=== PATIENT | female | born 1990 | race Caucasian/White ===

== ENCOUNTER 2016-07-24 15:29 | Emergency (ER) | payer OTHER ==
[2016-07-24 15:47] VITALS: RESP 18
--- NOTE | 2016-07-24 16:19 | EDPHY ---
H & P Time Seen by Provider: 07/24/16 16:15 HPI/ROS: Chief complaint. Shortness of breath HPI. 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 Last evening they were extracting the CBD oil and loosened the valve for the top of the instrument and apparently it ball [place] boiled over. There were some fumes. The patient was not in the room initially but came back in shortly thereafter and noticed the fumes. She noticed some burning in her sinuses and a bit of a headache. She was a little bit achy. She went home and slept well today she has slight tightness in her chest and had some nausea this morning. Otherwise no fever vomiting. No history of lung problems. The only material that she knows was in the extraction operation besides hemp was diatomaceous earth ROS Constitutional. no fever/chills, no weakness Eyes. no problems with vision ENT. no sore throat, no nasal drainage Cardiovascular. no chest pain Respiratory. Tightness with breathing Abdominal. no abdominal pain, no nausea/vomiting, no diarrhea . no problems urinating MS. no calf pain/swelling, no neck/back pain, no joint pain Skin. no rash Lymph. no swollen glands Neuro. no headache, no dizziness, no difficulty walking or with speech Past Medical/Surgical History: Healthy Social History: , nonsmoker, no alcohol Smoking Status: Former smoker Physical Exam: General Appearance: Alert pleasant well-developed female mild distress vital signs are stable Eyes: Pupils equal and round no pallor or injection. ENT, Mouth: Mucous membranes are moist. Mild erythema to pharynx without swelling or purulence Respiratory: No retractions slight inspiratory expiratory wheezing Cardiovascular: Regular rate and rhythm. Gastrointestinal: Abdomen is soft and nontender, no masses, bowel sounds normal. Neurological: Awake and alert, sensory and motor exams grossly normal. Skin: Warm and dry, no rashes. Musculoskeletal: Neck is supple nontender. Extremities symmetrical, full range of motion. Psychiatric: Patient is oriented X 3, there is no agitation. Constitutional: Initial Vital Signs Temperature (C) 36.5 C 07/24/16 15:43 Heart Rate 72 07/24/16 15:43 Respiratory Rate 18 07/24/16 15:43 Blood Pressure 135/76 H 07/24/16 15:43 O2 Sat (%) 93 07/24/16 15:43 O2 Delivery Mode Room Air Allergies/Adverse Reactions: Sulfa (Sulfonamide Antibiotics) Allergy (Verified 07/24/16 15:43) Home Medications: Medication Instructions Recorded Albuterol [Proventil Inhaler HFA 2 puffs IH Q4 PRN #1 mdi 07/24/16 (*)] Medical Decision Making Procedures: DuoNeb [facility] ED Course/Re-evaluation: Poison Control is contacted. Case [id number]. They recommend only symptomatic care Re-evaluation at 6:00 p.m. patient is stable. Her lungs are now clear after her DuoNeb. She feels well. Patient and I discussed laboratory evaluation, imaging study, poison Control discussion. We discussed treatment plan including criteria for return importance of follow-up further evaluation. She expresses understanding and agreement Differential Diagnosis: I considered pneumonia, pneumothorax, toxic exposures - Data Points Laboratory Results: Laboratory Results 07/24/16 16:45 07/24/16 16:45 07/24/16 07/24/16 16:45 16:45 WBC 5.28 10^3/uL 10^3/uL (3.80-9.50) RBC 4.65 10^6/uL 10^6/uL (4.18-5.33) Hgb 14.0 g/dL g/dL (12.6-16.3) Hct 40.5 % % (38.0-47.0) MCV 87.1 fL fL (81.5-99.8) MCH 30.1 pg pg (27.9-34.1) MCHC 34.6 g/dL g/dL (32.4-36.7) RDW 12.3 % % (11.5-15.2) Plt Count 211 10^3/uL 10^3/uL (150-400) MPV 12.4 fL H fL (8.7-11.7) Neut % (Auto) 64.8 % % (39.3-74.2) Lymph % (Auto) 28.0 % % (15.0-45.0) [place] % (Auto) 6.4 % % (4.5-13.0) Eos % (Auto) 0.2 % L % (0.6-7.6) Baso % (Auto) 0.4 % % (0.3-1.7) Nucleat RBC Rel Count 0.0 % % (0.0-0.2) Absolute Neuts (auto) 3.42 10^3/uL 10^3/uL (1.70-6.50) Absolute Lymphs (auto) 1.48 10^3/uL 10^3/uL (1.00-3.00) Absolute Monos (auto) 0.34 10^3/uL 10^3/uL (0.30-0.80) Absolute Eos (auto) 0.01 10^3/uL L 10^3/uL (0.03-0.40) Absolute Basos (auto) 0.02 10^3/uL 10^3/uL (0.02-0.10) Absolute Nucleated RBC 0.00 10^3/uL 10^3/uL (0-0.01) Immature Gran % 0.2 % % (0.0-1.1) Immature Gran # 0.01 10^3/uL 10^3/uL (0.00-0.10) Sodium 140 mEq/L mEq/L (134-144) Potassium 4.3 mEq/L mEq/L (3.5-5.2) Chloride 108 mEq/L mEq/L (97-110) Carbon Dioxide 23 mEq/l mEq/l (22-31) Anion Gap 9 mEq/L mEq/L (8-16) BUN 8 mg/dL mg/dL (7-23) Creatinine 0.7 mg/dL mg/dL (0.6-1.0) Estimated GFR > 60 Glucose 90 mg/dL mg/dL (70-100) Calcium 9.7 mg/dL mg/dL (8.5-10.4) Total Bilirubin 0.8 mg/dL mg/dL (0.1-1.4) Conjugated Bilirubin 0.5 mg/dL mg/dL (0.0-0.5) Unconjugated Bilirubin 0.3 mg/dL mg/dL (0.0-1.1) AST 26 IU/L IU/L (14-46) ALT 34 IU/L IU/L (9-52) Alkaline Phosphatase 75 IU/L IU/L (38-126) Total Protein 7.8 g/dL g/dL (6.3-8.2) Albumin 4.5 g/dL g/dL (3.5-5.0) Medications Given: Discontinued Medications Albuterol/Ipratropium (Duoneb) 3 ml IH EDNOW ONE Stop: 07/24/16 16:29 Last Admin: 07/24/16 16:43 Dose: 3 ml Sodium Chloride (Ns) 1,000 mls @ 0 mls/hr IV ONCE ONE PRN Reason: Wide Open Stop: 07/24/16 16:29 Last Admin: 07/24/16 16:42 Dose: 1,000 mls Departure - Departure Disposition: Home, Routine, Self-Care Clinical Impression: Exposure to toxic chemical Condition: Good Instructions: Dyspnea (ED) Additional Instructions: Albuterol inhaler using 2 puffs every 3-4 hours as needed for chest tightness or difficulty breathing. Return for any worsening symptoms. Have a discussion with your employer on Tuesday to see if there is any further toxic chemicals in the chemicals your exposed to for any further workup. Referrals: NONE *PRIMARY CARE P,. [Primary Care Provider] - As per Instructions Lamine Aden MD [Medical Doctor] - 2-3 days, if not improved Prescriptions: Albuterol [Proventil Inhaler HFA (*)] 2 puffs IH Q4 PRN #1 mdi PRN Reason: Short Of Breath/Dyspnea
[2016-07-24] MEDS ORDERED: NS 1,000 ML IV ONE (16:28)
[2016-07-24] MEDS ORDERED: IPRATROPIUM/ALBUTEROL 3 ML DEYVIAL IH ONE (16:28)
[2016-07-24 16:53] LABS: % IMMATURE GRANULYOCYTES 0.2 % (0.0-1.1); ABSOLUTE IMMATURE GRANULOCYTES 0.01 10^3/uL (0.00-0.10); ADD DIFF? NO; ADD MORPH? NO; ADD SCAN? NO; ATYPICAL LYMPHOCYTE FLAG 10 (0-99); FRAGMENT RBC FLAG 0 (0-99); HEMATOCRIT 40.5 % (38.0-47.0); LEFT SHIFT FLG 0 (0-99); LIPEMIA HEMOLYSIS FLAG 90 (0-99); MEAN CELL HEMOGLOBIN 30.1 pg (27.9-34.1); MEAN CELL HEMOGLOBIN CONCENTR. 34.6 g/dL (32.4-36.7); MEAN CELL VOLUME 87.1 fL (81.5-99.8); MEAN PLATELET VOLUME 12.4 fL (8.7-11.7); PLATELET CLUMPS FLAG 10 (0-99); PLATELET COUNT 211 10^3/uL (150-400); RED BLOOD CELL COUNT 4.65 10^6/uL (4.18-5.33); RED CELL DISTRIBUTION WIDTH 12.3 % (11.5-15.2)
[2016-07-24 17:15] LABS: ALANINE AMINOTRANSFERASE 34 IU/L (9-52); ALBUMIN 4.5 g/dL (3.5-5.0); ALKALINE PHOSPHATASE 75 IU/L (38-126); ANION GAP 9 mEq/L (8-16); ASPARTATE AMINOTRANSFERASE 26 IU/L (14-46); BILIRUBIN,TOTAL 0.8 mg/dL (0.1-1.4); BILIRUBIN-CONJUGATED 0.5 mg/dL (0.0-0.5); BILIRUBIN-UNCONJUGATED 0.3 mg/dL (0.0-1.1); CALCIUM 9.7 mg/dL (8.5-10.4); CARBON DIOXIDE 23 mEq/l (22-31); CHLORIDE 108 mEq/L (97-110); CREATININE 0.7 mg/dL (0.6-1.0); GLOMERULAR FILTRATION RATE > 60; GLUCOSE 90 mg/dL (70-100); POTASSIUM 4.3 mEq/L (3.5-5.2); SODIUM 140 mEq/L (134-144); TOTAL PROTEIN 7.8 g/dL (6.3-8.2)
[2016-07-24 18:08] VITALS: BP 98/60; PULSE 75; TEMP 98.1; O2SAT 95
== END 2016-07-24 18:20 | disposition home or self-care (01) ==
DX: Z77.120 Contact with and (suspected) exposure to mold (toxic) (principal); Z87.891 Personal history of nicotine dependence